=== PATIENT | female | born 1960 | race American Indian/Alaskan Native ===

== ENCOUNTER 2021-07-28 18:28 | Emergency (ER) | payer MEDICAID, OTHER ==
[2021-07-28 18:33] VITALS: BP 92/72; PULSE 106
--- NOTE | 2021-07-28 18:57 | EDM.PDOC ---
ED HPI GENERAL MEDICAL PROBLEM - General Chief Complaint: General Stated Complaint: headache, upset stomach Time Seen by Provider: 07/28/21 18:45 Source of Information: Reports: Patient History Limitations: Reports: No Limitations - History of Present Illness INITIAL COMMENTS - FREE TEXT/NARRATIVE: States that she walked from [place] and then was picked up and g iven ride to . She then had back pain and some nausea and felt weak and was picked up by law enforcement sitting along side the road and brought her in because she had nausea. She states that she is hitchhiking to [email or web address] to see her grandson. She is carrying a heavy backpack with her. Has some back pain also from carrying it. Has not been drinking well because she is walking. States that she hasn't had much to eat or drink today as she has been walking. She reports headache and feeling weak. Onset: Today Location: Reports: Abdomen, Back Quality: Reports: Ache Headache Pain Score (Numeric/FACES): 8 - Related Data Allergies Allergy/AdvReac Type Severity Reaction Status Date / Time codeine Allergy Nausea Verified 07/28/21 18:33 fentanyl Allergy Nausea Verified 07/28/21 18:33 naproxen [From Naprosyn] Allergy Hives Verified 07/28/21 18:33 Home Meds: Home Meds QUEtiapine [SEROquel] 600 mg PO BEDTIME 11/21/13 [History] Sertraline [Zoloft] 200 mg PO DAILY 11/21/13 [History] Gabapentin [Neurontin] 600 mg PO TID 12/14/13 [History] Albuterol [Ventolin HFA] 2 puff INH Q4H PRN 03/18/14 [History] Ibuprofen 600 mg PO Q8H PRN 03/03/17 [History] Montelukast [Singulair] 4 mg PO DAILY 03/03/17 [History] Phenytoin Sodium Extended [Dilantin] 200 mg PO BID 03/07/17 [History] Fluticasone/Salmeterol [Advair Diskus 500-50] 1 puff INH DAILY 08/01/17 [History] Past Medical History HEENT History: Reports: None Respiratory History: Reports: COPD Musculoskeletal History: Reports: Fracture Neurological History: Reports: Seizure Other Neuro History: October 2015 Psychiatric History: Reports: Anxiety, Depression - Past Surgical History HEENT Surgical History: Reports: None Respiratory Surgical History: Reports: None GI Surgical History: Reports: Appendectomy, Cholecystectomy Neurological Surgical History: Reports: None Musculoskeletal Surgical History: Reports: Other (See Below) Other Musculoskeletal Surgeries/Procedures:: arm surgery, leg surgery and bunion Social & Family History - Family History Family Medical History: No Pertinent Family History - Tobacco Use Tobacco Use Status *Q: Current Every Day Tobacco User Years of Tobacco use: 20 Packs/Tins Daily: 1 - Caffeine Use Caffeine Use: Reports: None - Recreational Drug Use Recreational Drug Use: No - Living Situation & Occupation Living situation: Reports: Other ED ROS GENERAL - Review of Systems Review Of Systems: See Below Constitutional: Denies: Fever, Chills Respiratory: Reports: No Symptoms Cardiovascular: Reports: No Symptoms GI/Abdominal: Reports: Nausea. Denies: Abdominal Pain, Vomiting Skin: Reports: No Symptoms Neurological: Denies: Confusion, Dizziness ED EXAM, GENERAL - Physical Exam Exam: See Below Exam Limited By: No Limitations General Appearance: Alert, WD/WN, No Apparent Distress Ears: Normal External Exam, Normal Canal, Normal TMs Throat/Mouth: Normal Inspection, Normal Oropharynx Head: Atraumatic, Normocephalic Neck: Normal Inspection, Supple, Non-Tender Respiratory/Chest: Lungs Clear, Normal Breath Sounds Cardiovascular: Regular Rate, Rhythm, No Edema GI/Abdominal: Normal Bowel Sounds, Soft, Non-Tender Extremities: Normal Inspection, No Pedal Edema Neurological: Alert, Oriented Skin Exam: Warm, Dry, Intact Course - Vital Signs Last Recorded V/S: Last Vital Signs Temp 95.9 F L 07/28/21 18:31 Pulse 106 H 07/28/21 18:31 Resp 18 07/28/21 18:31 BP 92/72 07/28/21 18:31 Pulse Ox 96 07/28/21 18:31 - Orders/Labs/Meds Orders: Active Orders 24 hr Category Date Time Status UA W/MICROSCOPIC [URIN] Stat Lab 07/28/21 18:51 Ordered Labs: Laboratory Tests 07/28/21 07/28/21 Range/Units 19:05 19:05 WBC 11.9 H (4.0-11.0) 10^3/uL RBC 4.07 (4.00-5.50) x10^6/uL Hgb 13.4 (12.0-16.0) g/dL Hct 39.4 (37.0-47.0) % MCV 96.8 (83.0-97.0) fL MCH 32.9 H (27.0-32.0) pg MCHC 34.0 (32.0-36.0) g/dL RDW Coeff of Jeovany 12.8 (11.0-15.0) % Plt Count 319 (150-400) 10^3/uL Immature Gran % (Auto) 0.2 (0.0-4.9) % Neut % (Auto) 81.9 H (41-71) % Lymph % (Auto) 13.0 L (24-44) % [place] % (Auto) 4.2 (0-10) % Eos % (Auto) 0.4 (0-6) % Baso % (Auto) 0.3 (0-1) % Neut # (Auto) 9.72 H (1.80-8.00) x10^3/uL Lymph # (Auto) 1.54 (0.60-5.00) 10^3/uL [place] # (Auto) 0.50 (0.00-1.50) 10^3/uL Eos # (Auto) 0.05 (0.00-1.50) 10^3/uL Baso # (Auto) 0.04 (0.00-0.50) 10^3/uL Immature Gran # (Auto) 0.02 (0.00-0.49) 10^3/uL Sodium 139 (136-145) mEq/L Potassium 4.7 (3.5-5.0) mEq/L Chloride 102 (98-106) mEq/L Carbon Dioxide 27 (21-32) mmol/L BUN 17 (7-18) mg/dL Creatinine 1.7 H (0.6-1.0) mg/dL Est Cr Clr Drug Dosing 25.83 mL/min Estimated GFR (MDRD) 31 L (>=60) mL/min Glucose 98 (75-99) mg/dL Calcium 9.8 (8.4-10.1) mg/dL Total Bilirubin 0.5 (0.0-1.0) mg/dL AST 40 H (15-37) U/L ALT 36 (12-78) U/L Alkaline Phosphatase 75 (46-116) U/L Total Protein 8.9 H (6.4-8.2) g/dL Albumin 5.0 (3.4-5.0) g/dL Amylase 182 H (25-115) U/L - Re-Assessments/Exams Free Text/Narrative Re-Assessment/Exam: 07/28/21 20:01 Discussed lab results. Discussed that I do not feel that it is safe for her to be out walking as she still wants to go to [place]. I feel that she is probably exhausted from walking and is weak. and her backpack easily weighs 10- 15#. her back is sore from carrying it. She was able to contact her sister who will come and get her from [facility]. Departure - Departure Time of Disposition: 20:13 Disposition: Home, Self-Care 01 Clinical Impression: Overexertion from prolonged carrying Qualifiers: Encounter type: initial encounter Qualified Code(s): X50.1XXA - Overexertion from prolonged static or awkward postures, initial encounter - Discharge Information *PRESCRIPTION DRUG MONITORING PROGRAM REVIEWED*: Not Applicable *COPY OF PRESCRIPTION DRUG MONITORING REPORT IN PATIENT NAEL: Not Applicable Referrals: PCP,None [Primary Care Provider] - Forms: ED Department Discharge Additional Instructions: Rest and drink plenty of fluids to rehydrate No extended walking Tylenol for discomfort Sepsis Event Note (ED) - Focused Exam Vital Signs: Vital Signs Temp Pulse Resp BP Pulse Ox 07/28/21 18:31 95.9 F L 106 H 18 92/72 96 - Problem List & Annotations (1) Overexertion from prolonged carrying SNOMED Code(s): 622221033 Code(s): X50.1XXA - OVEREXERTION FROM PROLONGED STATIC OR AWKWARD POSTURES, INIT Status: Acute Priority: High Current Visit: Yes Qualifiers: Encounter type: initial encounter Qualified Code(s): X50.1XXA - Overexertion from prolonged static or awkward postures, initial encounter - Problem List Review Problem List Initiated/Reviewed/Updated: Yes - My Orders Last 24 Hours: My Active Orders 07/28/21 18:51 UA W/MICROSCOPIC [URIN] Stat - Assessment/Plan Last 24 Hours: My Active Orders 07/28/21 18:51 UA W/MICROSCOPIC [URIN] Stat
== END 2021-07-28 21:00 | disposition home or self-care (01) ==
LOC: CC.ED 18:28
DX: M54.9 Dorsalgia, unspecified (principal); J44.9 Chronic obstructive pulmonary disease, unspecified; Z72.0 Tobacco use; Z88.5 Allergy status to narcotic agent; Z88.8 Allergy status to other drugs, medicaments and biological substances; X50.1XXA Overexertion from prolonged static or awkward postures, initial encounter
CPT/HCPCS: 36415; 80053; 82150; 85025; 99283